=== PATIENT | male | born 1980 | race Two or more races ===

== ENCOUNTER 2020-11-30 12:08 | Emergency (ER) | payer SELFPAY ==
[~2020-11-30] VITALS: Ht 172.7 cm; Wt 75.0 kg
--- NOTE | 2020-11-30 12:34 | RAD ---
XR FINGER(S)_LEFT 2+VIEWS_RT History: Reason: finger laceration from saw / Spl. Instructions: / History: Comparison: None. Technique: AP view left hand with 2 coned-down views of the middle finger. Findings: There is a comminuted transverse fracture of the middle finger distal phalanx with multiple small fra gments. Largest fragment measures approximately 7 mm length and is volarly displaced by approximately 4 mm. No dislocations. No destructive osseous lesions are seen. Joint spaces are preserved. Soft tissue swelling and bandage at the distal middle finger. No radiopaque foreign body. Impression: 1. Comminuted fracture of the middle finger distal phalanx. Electronically signed by: Iván Mcleod MD (11/30/2020 12:32 PM) [facility]
[2020-11-30] MEDS ORDERED: MORPHINE SULFATE 10 MG/ML VIAL. IV ONE (14:00)
[2020-11-30] MEDS ORDERED: PIPERACILLIN/TAZOBACTAM 3.375 GM in IV NORMAL SALINE 50ML 50 ML IV ONE (14:00)
[2020-11-30] MEDS ORDERED: DIPH,PERTUSS(ACELL),TET VAC/PF 0.5 ML SYRINGE. VAX IM ONE (14:30)
[2020-11-30 15:43] VITALS: BP 135/91
--- NOTE | 2020-11-30 16:00 | PHYS DOC ---
Past Medical History Past Medical History: No Pertinent History Past Surgical History: No Surgical History Smoking Status: Never Smoker Alcohol Use: None General Adult EDM: Chief Complaint: LACERATION/AVULSION HPI: HPI: Patient is a 40 year old male patient who presents to the ED today with laceration to the left middle finger. Patient states he was working with a circular saw with cutting. He is right-handed. Review of Systems: Review of Systems: Constitutional: Denies fever or chills. [] Musculoskeletal: Denies back pain or joint pain. [] Integument: Reports left middle finger laceration Neurologic: Denies headache, focal weakness or sensory changes. [] Psychiatric: Denies depression or anxiety. [] Heart Score: C/O Chest Pain: N/A Risk Factors: Risk Factors: DM, Current or recent (<one month) smoker, HTN, HLP, family history of CAD, obesity. Risk Scores: Score 0 - 3: 2.5% MACE over next 6 weeks - Discharge Home Score 4 - 6: 20.3% MACE over next 6 weeks - Admit for Clinical Observation Score 7 - 10: 72.7% MACE over next 6 weeks - Early Invasive Strategies Current Medications: Current Medications Medications (Trade) Dose Ordered Sig/Leila Start Time Stop Time Status Last Admin Dose Admin Diphtheria/ Tetanus/Acell Pertussis (ADACEL TDap SYRINGE) 0.5 ml ONCE ONCE 11/30/20 14:30 11/30/20 14:33 DC 11/30/20 14:42 0.5 ML Morphine Sulfate (Morphine Sulfate) 5 mg 1X ONCE 11/30/20 14:00 11/30/20 14:23 DC 11/30/20 14:33 5 MG Piperacillin Sod/ Tazobactam Sod 3.375 gm/Sodium Chloride 50 ml @ 100 mls/hr 1X ONCE 11/30/20 14:00 11/30/20 14:29 DC 11/30/20 14:34 100 MLS/HR Allergies: Allergies: Allergies Coded Allergies Type Severity Reaction Last Updated Verified No Known Drug Allergies 11/30/20 No Physical Exam: PE: Constitutional: Well developed, well nourished, no acute distress, non-toxic appearance. [] Skin: Left middle finger distal and has a laceration on the dorsal aspect of running towards the ulnar into the posterior part of the finger roughly 5 cm long. The laceration is deep into the bone. The tip of the finger is still attached. Patient has adequate radial and ulnar sensation to the left middle finger. Patient able to slightly move the left middle finger. +2 left radial pulse. Cap refill less than 2 seconds to left middle finger. Back: No tenderness, no CVA tenderness. [] Extremities: No tenderness, no cyanosis, no clubbing, ROM intact, no edema. [] Neurologic: Alert and oriented X 3, normal motor function, normal sensory function, no focal deficits noted. [] Psychologic: Affect normal, judgement normal, mood normal. [] Current Patient Data: Vital Signs: Vital Signs Date Time Temp Pulse Resp B/P (MAP) Pulse Ox O2 Delivery O2 Flow Rate FiO2 11/30/20 15:43 62 16 97 11/30/20 14:12 99.2 154/91 (112) Room Air 99.2 EKG: EKG: [] Radiology/Procedures: Radiology/Procedures: []PROCEDURE: FINGER(S) LEFT XR FINGER(S)_LEFT 2+VIEWS_RT History: Reason: finger laceration from saw / Spl. Instructions: / History: Comparison: None. Technique: AP view left hand with 2 coned-down views of the middle finger. Findings: There is a comminuted transverse fracture of the middle finger distal phalanx with multiple small fragments. Largest fragment measures approximately 7 mm length and is volarly displaced by approximately 4 mm. No dislocations. No destructive osseous lesions are seen. Joint spaces are preserved. Soft tissue swelling and bandage at the distal middle finger. No radiopaque foreign body. Impression: 1. Comminuted fracture of the middle finger distal phalanx. Electronically signed by: Iván Mcleod MD (11/30/2020 12:32 PM) [facility] DICTATED and SIGNED BY: IVÁN MCLEOD MD DATE: 11/30/20 [id number] 0 Course & Med Decision Making: Course & Med Decision Making Pertinent Labs and Imaging studies reviewed. (See chart for details) This is a 40-year-old male patient presented to the ED today with laceration to the left middle finger after being cut by a circular saw. Left middle finger x-rays interpreted by radiologist were noted for -comminuted fracture of the middle finger distal phalanx. This is an open fracture. Patient was given tetanus shot, Zosyn and morphine in the ED. Spoke to [facility]. Patient was accepted by in the ED and Dr. Lepe hand surgeon will transport. Netta Disclaimer: Netta Disclaimer: This electronic medical record was generated, in whole or in part, using a voice recognition dictation system. Departure Departure Impression: Primary Impression: Fracture of distal phalanx of left middle finger Qualified Codes: S62.663B - Nondisplaced fracture of distal phalanx of left middle finger, initial encounter for open fracture Disposition: 05 DC/TRF OTHER TYPE INSTITUTI Condition: STABLE Referrals: NO PCP (PCP) Please head to [facility] Patient Instructions: Finger Fracture, [id number] SHEMAR SLADE APRN Nov 30, 2020 16:00
== END 2020-11-30 16:05 | disposition short-term general hospital (02) ==
LOC: ER 12:08
DX: S62.663B Nondisplaced fracture of distal phalanx of left middle finger, initial encounter for open fracture (principal); R20.2 Paresthesia of skin; W26.8XXA Contact with other sharp object(s), not elsewhere classified, initial encounter; Y93.89 Activity, other specified; Y92.89 Other specified places as the place of occurrence of the external cause; Y99.8 Other external cause status
CPT/HCPCS: 73140; 90471; 90715; 96365; 96375; 99285; J2270; J2543